=== PATIENT | female | born 1975 | race African-American/Black ===

== ENCOUNTER 2017-09-08 15:13 | Emergency (ER) | payer MEDICAID, MEDICARE ==
[~2017-09-08] VITALS: Ht 154.9 cm; Wt 86.0 kg
[~2017-09-08 15:13] MED LIST: AMLO5TAB4; FERR1TAB25; GABA-529; IBUP-1008; MULT1CAP34; SERT25TA; TRAM100T27; TRAZADONE
[2017-09-08] MEDS ORDERED: IBUPROFEN 600MG TABLET PO STA (15:26)
[2017-09-08] MEDS ORDERED: VISCOUS LIDOCAINE 2% 15 ML UDC PO ONE (15:30)
[2017-09-08] MEDS ORDERED: MAGNESIUM/ALUMINUM HYDROXIDE/SIMETHICONE 30ML UDC PO ONE (15:30)
[2017-09-08 15:59] LABS: BASOPHILS % 1.1 % (0.0-2.0); EOSINOPHILS % 5.4 % (0.0-5.0); HEMATOCRIT. 34.7 % (36.0-48.0); HEMOGLOBIN. 11.5 g/dL (12.0-16.0); LYMPHOCYTES % 41.8 % (20.0-50.0); MEAN CORPUSCULAR HEMOGLOBIN 30.4 pg (28.0-32.0); MEAN CORPUSCULAR VOLUME 91.6 fL (81.0-99.0); MONOCYTES % 10.1 % (2.0-8.0); NEUTROPHILS % 41.6 % (40.0-76.0); PLATELET 228 x1000/uL (130-400); RED BLOOD CELL COUNT 3.79 mill/uL (4.2-5.4); RED CELL DISTRIBUTION WIDTH 15.3 % (11.6-14.6)
[2017-09-08 16:01] LABS: CHLORIDE 109 mEq/L (98-107)
[2017-09-08 16:05] LABS: D-DIMER 0.48 mg/L FEU (<0.50); INR 1.1; PROTHROMBIN TIME 11.1 sec (9.4-11.6)
[2017-09-08] MEDS ORDERED: ONDANSETRON HCL 4MG/2ML VIAL IV STA ×2 (16:17→19:22)
[2017-09-08] MEDS ORDERED: LISINOPRIL 10MG TABLET PO ONE (17:15)
[2017-09-08] MEDS ORDERED: HYDRALAZINE 20MG/ML VIAL IV ONE (17:45)
[2017-09-08] MEDS ORDERED: ONDANSETRON HCL 4MG/2ML VIAL IV ONE (17:45)
[2017-09-08] MEDS ORDERED: DIPHENHYDRAMINE 50MG/ML VIAL IV ONE ×2 (18:15→19:45)
[2017-09-08] MEDS ORDERED: MORPHINE SULFATE 4 MG/ML CPJ (NOT FOR IM USE) IV STA (19:22)
[2017-09-08 22:00] VITALS: BP 141/93
== END 2017-09-08 22:21 | disposition home or self-care (01) ==
LOC: ER 15:13
DX: R07.9 Chest pain, unspecified (principal); I10 Essential (primary) hypertension; F17.200 Nicotine dependence, unspecified, uncomplicated
CPT/HCPCS: 36415; 71045; 80053; 81025; 83880; 84484; 85025; 85379; 85610; 93005; 96374; 96375; 96376; 99285; J0360; J1200; J2270; J2405; Z7610

== ENCOUNTER 2018-09-03 13:54 | Emergency (ER) | payer MEDICARE ==
[~2018-09-03] VITALS: Ht 170.2 cm; Wt 77.0 kg
[2018-09-03] MEDS ORDERED: ALPRAZOLAM 0.5 MG TABLET PO ONE (15:00)
[2018-09-03] MEDS ORDERED: HYDROCHLOROTHIAZIDE 25MG TABLET PO ONE (15:00)
[2018-09-03] MEDS ORDERED: AMLODIPINE 10MG TABLET PO ONE (15:00)
[2018-09-03 16:05] LABS: EOSINOPHILS % 2.3 % (0.0-5.0); HEMATOCRIT. 33.7 % (36.0-48.0); HEMOGLOBIN. 11.1 g/dL (12.0-16.0); LYMPHOCYTES % 29.3 % (20.0-50.0); MEAN CORPUSCULAR HEMOGLOBIN 29.4 pg (28.0-32.0); MEAN CORPUSCULAR VOLUME 89.5 fL (81.0-99.0); MEAN PLATELET VOLUME 9.4 fl (7.4-10.4); MONOCYTES % 7.9 % (2.0-8.0); NEUTROPHILS % 59.5 % (40.0-76.0); PLATELET 248 x1000/uL (130-400); RED BLOOD CELL COUNT 3.77 mill/uL (4.2-5.4); RED CELL DISTRIBUTION WIDTH 17.3 % (11.6-14.6)
[2018-09-03 16:08] LABS: CHLORIDE 106 mEq/L (98-107)
[2018-09-03] MEDS ORDERED: ASPIRIN 325MG EC TABLET PO ONE (16:30)
[2018-09-03] MEDS ORDERED: ACETAMINOPHEN 325MG TABLET PO ONE (16:30)
[2018-09-03] MEDS ORDERED: NITROGLYCERIN 0.4MG TABLET SL SL ONE (18:45)
[2018-09-03 22:00] VITALS: BP 152/114
== END 2018-09-03 22:59 | disposition short-term general hospital (02) ==
LOC: ER 13:54
DX: F41.1 Generalized anxiety disorder (principal); I10 Essential (primary) hypertension; R07.89 Other chest pain; F12.10 Cannabis abuse, uncomplicated; F17.290 Nicotine dependence, other tobacco product, uncomplicated; Z98.890 Other specified postprocedural states; Z88.8 Allergy status to other drugs, medicaments and biological substances
CPT/HCPCS: 36415; 71045; 81025; 84484; 93005; 99285